=== PATIENT | female | born 1990 | race Caucasian/White ===

== ENCOUNTER 2016-08-20 16:09 | Emergency (ER) | payer SELFPAY ==
[~2016-08-20] VITALS: Ht 162.6 cm; Wt 68.0 kg
[2016-08-20 18:18] VITALS: BP 131/71
== END 2016-08-20 18:19 | disposition home or self-care (01) ==
LOC: ER 16:09
DX: M25.511 Pain in right shoulder (principal); G40.909 Epilepsy, unspecified, not intractable, without status epilepticus; F17.200 Nicotine dependence, unspecified, uncomplicated; F11.10 Opioid abuse, uncomplicated; R51 Headache; F15.10 Other stimulant abuse, uncomplicated; W18.39XA Other fall on same level, initial encounter; Y93.89 Activity, other specified; Y92.89 Other specified places as the place of occurrence of the external cause; Y99.9 Unspecified external cause status
CPT/HCPCS: 70450; 71010; 73030; 99284; A4606; Z7610

== ENCOUNTER 2017-07-06 16:54 | Emergency (ER) | payer SELFPAY ==
[~2017-07-06] VITALS: Ht 172.7 cm; Wt 83.9 kg
--- NOTE | 2017-07-06 17:20 | NUR ---
26 YO FEMALE BB SELF. PATIENT IS A/O X 3, STATES SHE STEPPED ON A PIECE OF GLASS 1 WK AGO. PATIENT SECONDARY COMPLAINT NAUSEA/ VOMIT X 2 DAYS. PATIENT AMBULATED TO ER BED WITH STEADY GAIT, SKIN WARM AND DRY, RESP EVEN AND UNLABORED. AWAITING ORDERS FROM PROVIDER, WILL CONTINUE TO MONITOR
[2017-07-06] MEDS ORDERED: ONDANSETRON HCL/PF 4 MG/2 ML VIAL ONE (17:39)
[2017-07-06 17:51] LABS: BASOPHILS # (AUTO) 0.1 /CMM (0.0-0.2); BASOPHILS % (AUTO) 1.3 % (0.0-2.0); EOSINOPHILS # (AUTO) 0.3 /CMM (0.0-0.7); EOSINOPHILS % (AUTO) 4.3 % (0.0-6.0); HEMATOCRIT 33 % (33-45); HEMOGLOBIN 11.6 g/dL (11.5-14.8); LYMPHOCYTES # (AUTO) 2.5 /CMM (0.8-4.8); LYMPHOCYTES % (AUTO) 32.1 % (20.0-44.0); MEAN CORPUSCULAR HEMOGLOBIN 28 PG (26.0-33.0); MEAN CORPUSCULAR HGB CONC 35 g/dl (31.0-36.0); MEAN CORPUSCULAR VOLUME 81 fL (82-100); MONOCYTES # (AUTO) 0.6 /CMM (0.1-1.30); MONOCYTES % (AUTO) 8.2 % (2.0-12.0); NEUTROPHILS # (AUTO) 4.2 /CMM (1.8-8.9); NEUTROPHILS % (AUTO) 54.1 % (43.0-81.0); PLATELET COUNT (AUTO) 307 /CMM (150-450); RDW COEFFICIENT OF VARIATION 11.6 (11.5-15.0); RED BLOOD CELL COUNT(AUTO) 4.07 MIL/uL (4.0-5.2); WHITE BLOOD COUNT (AUTO) 7.8 K/uL (4.3-11.0)
--- NOTE | 2017-07-06 17:51 | NUR ---
20G RIGHT AC IV STARTED, BLOOD SAMPLE OBTAINED AND SENT TO LAB. MEDICATED PT ORDERED
[2017-07-06 18:00] LABS: CALCIUM, SERUM 8.4 mg/dL (8.5-10.1); CREATININE 0.7 mg/dL (0.6-1.3); POTASSIUM 3.6 mmol/L (3.5-5.1)
[2017-07-06] MEDS ORDERED: ONDANSETRON HCL/PF 4 MG/2 ML VIAL IVP ONE (18:00)
[2017-07-06] MEDS ORDERED: IV NS 0.9% 1,000 ML BAG IV ONE (18:00)
[2017-07-06 19:07] VITALS: BP 126/62
== END 2017-07-06 19:08 | disposition home or self-care (01) ==
LOC: ER 16:56
DX: M79.671 Pain in right foot (principal); R11.2 Nausea with vomiting, unspecified; F15.10 Other stimulant abuse, uncomplicated; F11.10 Opioid abuse, uncomplicated; G40.909 Epilepsy, unspecified, not intractable, without status epilepticus; F17.200 Nicotine dependence, unspecified, uncomplicated; Z91.14 Patient's other noncompliance with medication regimen; Z59.0 Homelessness; W22.8XXA Striking against or struck by other objects, initial encounter; Y93.89 Activity, other specified; Y92.89 Other specified places as the place of occurrence of the external cause; Y99.8 Other external cause status
CPT/HCPCS: 36415; 73630; 80048; 85025; 96361; 96374; 99285; 99406; A4606; A6402; J2405; Z7610